=== PATIENT | male | born 1980 | race Caucasian/White ===

== ENCOUNTER 2016-06-06 01:09 | Emergency (ER) | payer SELFPAY ==
[2016-06-06 01:23] VITALS: BP 140/78; TEMP 97.5
--- NOTE | 2016-06-06 01:32 | ED.PDOC ---
History of Present Illness - General Chief Complaint: Lower Extremity Injury Stated Complaint: left ankle pain Time Seen by Provider: 06/06/16 01:24 Source: patient, RN notes reviewed, Vital Signs reviewed Exam Limitations: no limitations - History of Present Illness Initial Comments: Patient was jumping on the trampoline after ingesting a fair amount of alcohol and landed on his L ankle wrong and twisted it. He had a sudden onset of pain and swelling. He is not able to put any weight on it. No numbness or tingling. Occurred: just prior to arrival Pain - Lower Extremity: moderate: Left Ankle Method of Injury: twisted Improving Factors: rest Worsening Factors: movement Allergies/Adverse Reactions: Allergies NO KNOWN ALLERGY Allergy (Verified 06/06/16 01:23) Review of Systems - Review of Systems Constitutional: States: no symptoms reported EENTM: States: no symptoms reported Respiratory: States: no symptoms reported Cardiology: States: no symptoms reported Gastrointestinal/Abdominal: States: no symptoms reported Musculoskeletal: States: see HPI, joint pain - L ankle, joint swelling - Left ankle Skin: States: no symptoms reported Neurological: States: no symptoms reported Endocrine: States: no symptoms reported Past Medical History (General) - Patient Medical History Surgical History: no surgical history - Vaccination History Hx Influenza Vaccination: No Hx Pneumococcal Vaccination: No Immunizations Up to Date: Yes - Social History Hx Tobacco Use: Yes Hx Alcohol Use: Yes - "8 beers and a couple of mixed drinks" - Activities of Daily Living Hospice Agency (if applicable):: None - Female History Patient is a Female of Child Bearing Age (10 -59 yrs old): No Family Medical History - Family History Mother Family History: Unknown Living Status: Unknown Physical Exam - Physical Exam General Appearance: Alert, Comfortable, No apparent distress, Well Developed, Well Groomed, Well Hydrated, Well Nourished Cardiovascular/Respiratory: normal peripheral pulses Thigh/Hip: normal inspection, non-tender, no evidence of injury, normal ROM Leg: normal inspection, non-tender, no evidence of injury, normal ROM Knee: normal inspection, non-tender, no evidence of injury, normal ROM Ankle: limited ROM, pain, soft tissue tenderness, swelling - L ankle Foot: normal inspection, non-tender, no evidence of injury, normal ROM Neuro/Tendon: normal sensation, normal motor functions, normal tendon functions Mental Status: alert, oriented x 3 Skin: normal color, warm/dry Progress - EKG/XRAY/CT XRAY: ankle - L ankle shows a non-displaced distal fibula fracture Procedures - Splinting Left Ankle Pre-Made Type: Orthoboot Pre-Proc Neuro Vasc Exam: normal Post-Proc Neuro Vasc Exam: normal Departure - Departure Clinical Impression: Closed fracture of distal end of left fibula Time of Disposition: 02:01 Disposition: Discharge to Home or Self Care Condition: Good Departure Forms: ED Discharge - Pt. Copy, Patient Portal Self Enrollment Diet: resume usual diet Activity: walking as tolerated Referrals: Bishnu Duarte MD [Active Staff] - 1-5 Days (Follow up in 3-5 days)
[2016-06-06 02:30] VITALS: O2SAT 97
--- NOTE | 2016-06-06 13:42 | RAD ---
EXAM: Three view(s) of the left ankle. INDICATION: Pain. COMPARISON: None. FINDINGS: There is a minimally displaced oblique fracture of the distal fibula. Distal tibia appears intact. No other fractures identified. There is mild soft tissue swelling around the fracture site. IMPRESSION: Minimally displaced oblique fracture of the distal fibula Electronically signed by: Demar Barrera MD 06/06/2016 1:52 AM DIPLOMA DENTAL ASSISTANT
--- NOTE | 2016-06-17 13:44 | RAD ---
EXAM: Three view(s) of the left ankle. INDICATION: Pain. COMPARISON: None. FINDINGS: There is a minimally displaced oblique fracture of the distal fibula. Distal tibia appears intact. No other fractures identified. There is mild soft tissue swelling around the fracture site. IMPRESSION: Minimally displaced oblique fracture of the distal fibula Electronically signed by: Demar Barrera MD 06/06/2016 1:52 AM FIRE EQUIPMENT OPERATOR
--- NOTE | 2016-06-22 | RAD ---
EXAM: Three view(s) of the left ankle. INDICATION: Pain. COMPARISON: None. FINDINGS: There is a minimally displaced oblique fracture of the distal fibula. Distal tibia appears intact. No other fractures identified. There is mild soft tissue swelling around the fracture site. IMPRESSION: Minimally displaced oblique fracture of the distal fibula Electronically signed by: Demar Barrera MD 06/06/2016 1:52 AM HORTICULTURAL WORKER
== END 2016-06-06 02:30 | disposition home or self-care (01) ==
LOC: ER 01:09
DX: S82.832A Other fracture of upper and lower end of left fibula, initial encounter for closed fracture (principal); X50.1XXA Overexertion from prolonged static or awkward postures, initial encounter; Y93.44 Activity, trampolining

== ENCOUNTER → 2016-06-11 | Outpatient (CLI) | payer SELFPAY ==
--- NOTE | 2016-06-11 09:18 | RAD ---
EXAM DESCRIPTION: XR ANKLE 3 OR MORE VIEWS CLINICAL HISTORY: 35 y/o MPAIN IN LEFT ANKLE left ankle fracture COMPARISON: 06 June 2016 TECHNIQUE: AP/lateral/oblique of the ankle FINDINGS: There is an oblique nondisplaced nonangulated fracture of the distal fibular metaphysis period no healing is observed at this time. Ankle mortise joint shows medial widening. I strongly suspect a deltoid ligament injury. IMPRESSION: 1. Nondisplaced distal fibula fracture with medial joint space widening indicates medial ligament injury. Electronically signed by: Tristin Owens MD 06/11/2016 09:17
== END | disposition home or self-care (01) ==
LOC: RAD 08:08
PROVIDERS: ATTEND Orthopaedic Surgery
DX: M25.572 Pain in left ankle and joints of left foot (principal)

== ENCOUNTER → 2016-06-19 | Outpatient (CLI) | payer SELFPAY ==
--- NOTE | 2016-06-21 09:30 | RAD ---
EXAM DESCRIPTION: XR ANKLE 3 OR MORE VIEWS CLINICAL HISTORY: 35 y/o M, CLOSED FX OF DISTAL LEFT ANKLE COMPARISON: 06/11/2016 FINDINGS: Stable Albarran type B fracture of the distal left fibula. Tibia and talar dome are cortically intact. No ankle mortise widening or syndesmotic injury. No subcutaneous emphysema or radiopaque foreign body. Associated tibiotalar joint hemarthrosis. IMPRESSION: Stable Albarran B type fracture of the distal left fibula. No significant change. Electronically signed by: Erich Gallo 06/21/2016 09:28
== END | disposition home or self-care (01) ==
LOC: RAD 07:46
PROVIDERS: ATTEND Orthopaedic Surgery
DX: S82.822D Torus fracture of lower end of left fibula, subsequent encounter for fracture with routine healing (principal)

== ENCOUNTER → 2016-07-02 | Outpatient (CLI) | payer SELFPAY ==
--- NOTE | 2016-07-02 09:35 | RAD ---
EXAM DESCRIPTION: Ankle,Left 3 Views CLINICAL HISTORY: 35 yearsMale, CLOSED FX OF DISTAL FIBULA COMPARISON: June 19, 2016 IMPRESSION: Obliquely oriented fracture of the distal left fibula is noted. This fracture demonstrates subtle increased callus formation compatible with healing. No new findings on today's study. The syndesmosis is stable. Soft tissue swelling has decreased. Electronically signed by: Ishan Gonsales MD 07/02/2016 9:34 AM COAT AGENT
== END | disposition home or self-care (01) ==
LOC: RAD 07:57
PROVIDERS: ATTEND Orthopaedic Surgery
DX: S82.822D Torus fracture of lower end of left fibula, subsequent encounter for fracture with routine healing (principal)

== ENCOUNTER → 2016-07-16 | Outpatient (CLI) | payer SELFPAY ==
--- NOTE | 2016-07-16 09:19 | RAD ---
EXAM DESCRIPTION: Ankle,Left 3 Views CLINICAL HISTORY: 35 years Male, CLOSED FRACTURE OF DISTAL FIBULA IMPRESSION: Three views of the left ankle are compared to July 02, 2016. The obliquely oriented fracture through the distal fibula with involvement of the syndesmosis is again noted. Increased callus formation compatible with increased healing. Soft tissue swelling about the ankle is decreased. Ankle mortise is intact. Electronically signed by: Ishan Gonsales MD 07/16/2016 9:18 AM CDT
== END | disposition home or self-care (01) ==
LOC: RAD 08:48
PROVIDERS: ATTEND Orthopaedic Surgery
DX: S82.822D Torus fracture of lower end of left fibula, subsequent encounter for fracture with routine healing (principal)

== ENCOUNTER → 2016-08-17 | Outpatient (CLI) | payer SELFPAY ==
--- NOTE | 2016-08-17 10:26 | RAD ---
EXAM DESCRIPTION: Ankle,Left 3 Views CLINICAL HISTORY: 35 years Male, FX COMPARISON: July 16, 2016 FINDINGS: Again seen is an obliquely oriented, minimally displaced distal left fibular fracture which is only partially united. No new fracture or malalignment. There is diffuse soft tissue swelling. IMPRESSION: Minimally displaced, partially united distal left fibular fracture unchanged from July 16, 2016. Diffuse soft tissue swelling, but no new fracture or malalignment. Electronically signed by: Storm Meehan MD 08/17/2016 10:25 AM CDT
== END | disposition home or self-care (01) ==
LOC: RAD 08:17
PROVIDERS: ATTEND Orthopaedic Surgery
DX: S82.822D Torus fracture of lower end of left fibula, subsequent encounter for fracture with routine healing (principal); X58.XXXA Exposure to other specified factors, initial encounter